=== PATIENT | female | born 1945 | race Caucasian/White ===

== ENCOUNTER 2018-06-02 16:27 | Observation (INO) | payer MEDICARE, OTHER ==
[~2018-06-02 16:27] MED LIST: Iopamidol 370 76% 100 ML VIAL ONE
[2018-06-02] MEDS ORDERED: Nitroglycerin 4.9 GM Bottle ONE (17:17)
[2018-06-02] MEDS ORDERED: Nitroglycerin 0.4 MG TAB (25 Tab Bottle) ONE (17:17)
[2018-06-02 17:34] LABS: #Basophils 0.1 thou/uL (0.0-0.2); #Eosinphils 0.2 thou/uL (0.0-0.7); #Lymphocytes 2.2 thou/uL (1.20-3.40); #Monocytes 0.7 thou/uL (0.11-0.59); %Basophils 1.1 % (0.0-1.0); %Eosinophils 2.1 % (0.0-10.0); %Monocytes 7.3 % (0.0-10.0); %Neutrophils 65.5 % (42.0-75.0); Hemoglobin 14.4 g/dL (12.0-16.0); Mean Corpuscular HGB CONC 32.7 g/dL (32.0-36.0); Mean Corpuscular Hemoglobin 28.5 pg (27.0-31.0); Mean Corpuscular Volume 87.3 fL (78.0-98.0); Mean Platelet Volume 9.4 fL (7.4-10.4); Platelet Count 183 thou/uL (130-400); Red Blood Cell (RBC) Count 5.04 mill/uL (4.20-5.40); White Blood Cell (WBC) Count 9.2 thou/uL (4.8-10.8)
[2018-06-02 17:49] LABS: ALT (SGPT) 17 U/L (8-55); AST (SGOT) 17 U/L (5-34); Albumin 4.5 g/dL (3.4-4.8); Alkaline Phosphatase 81 U/L (40-150); Anion Gap 13 mmol/L (10-20); BUN (Urea Nitrogen) 14 mg/dL (9.8-20.1); Bilirubin, Total 0.5 mg/dL (0.2-1.2); CK (CPK) 111 U/L (29-168); Calc. Creatinine Clearance 0 mL/min (70-130); Calcium 10.1 mg/dL (7.8-10.44); Carbon Dioxide 27 mmol/L (23-31); Chloride 106 mmol/L (98-107); Estimated GFR-MDRD 72; Globulin 3.1 g/dL (2.4-3.5); Glucose 102 mg/dL (80-115); Lipase 10 U/L (8-78); Potassium 4.2 mmol/L (3.5-5.1); Protein, Total 7.6 g/dL (6.0-8.3); Sodium 142 mmol/L (136-145)
[2018-06-02 17:50] LABS: CKMB 1.8 ng/mL (0-6.6); Troponin I Less than 0.010 ng/mL (< 0.028)
[2018-06-02] MEDS ORDERED: Morphine 4 MG/ML VIAL ONE (17:58)
--- NOTE | 2018-06-02 18:31 | RAD ---
CHEST ONE VIEW: HISTORY: Chest pain. FINDINGS: The cardiac silhouette is magnified by projection. The pulmonary vasculature is unremarkable. The m ediastinum is midline with aortic calcification. No lobar consolidation or evidence of pneumothorax. IMPRESSION: Atherosclerosis. No active cardiopulmonary abnormalities are demonstrated. POS: [facility]
--- NOTE | 2018-06-02 19:28 | CT ---
CT ARTERIOGRAM CHEST WITH IV CONTRAST AND 3D MIP IMAGING: CT ARTERIOGRAM ABDOMEN WITH IV CONTRAST AND 3D MIP IMAGING: CT ARTERIOGRAM PELVIS WITH IV CONTRAST AND 3D MIP IMAGING: HISTORY: Chest pain. Abdomen pain. Radiation to back. FINDINGS: Good contrast opacification of the pulmonary arteries and thoracic aorta with normal branching of the great vessels. Mild arterial calcification. No aneurysm or leak. No evidence of dissection. The visceral arteries of the abdomen are patent. Hyperdense stones in the dependent portion of the gallb ladder lumen. Postoperative changes of the anterior abdominal wall. The urinary bladder is unremark able. Diverticula arise from the colon without adjacent inflammation. Postoperative changes of the lumbar spine. IMPRESSION: 1. No evidence of aortic dissection or aneurysm. 2. Mild atherosclerosis. 3. Cholelithiasis. 4. Diverticulosis. No evidence of diverticulitis. POS: [facility]
[2018-06-02 20:46] VITALS: BMI 32.9
[2018-06-02] MEDS ORDERED: Zolpidem Tartrate 5 MG TAB PO PRN ×2 (21:27→22:57)
[2018-06-02] MEDS ORDERED: Ondansetron HCl/PF 4 MG/2 ML Vial IVP PRN (22:55)
[2018-06-02] MEDS ORDERED: Nitroglycerin 0.4 MG TAB (25 Tab Bottle) PO PRN (22:55)
[2018-06-02] MEDS ORDERED: HumaLOG 300 UNITS/3 ML VIAL SC PRN (22:57)
[2018-06-02] MEDS ORDERED: Dextrose 5% in Water 1,000 ML IV PRN (22:57)
[2018-06-02] MEDS ORDERED: Dextrose 50% Abboject 50 ML SYRINGE SLOW IVP PRN (22:57)
[2018-06-02 23:30] LABS: Troponin I Less than 0.010 ng/mL (< 0.028)
--- NOTE | 2018-06-03 00:20 | HP ---
PRIMARY CARE PHYSICIAN: Dr. Ruddy Mcarthur. CODE STATUS: FULL CODE. TIME OF EVALUATION: 9:40 p.m. CHIEF COMPLAINT: Left shoulder pain radiating to the left arm. HISTORY OF PRESENT ILLNESS: A 72-year-old female patient with past medical history of diabetes type 2, came to the hospital after having chest pain that was mostly on the left shoulder radiating to the left arm. The pain has been going on for the past 4 days with no clear triggers, no alleviating fac tors. The patient reported the pain occasionally severe, 8/10, has a strong family history of diabet es and heart problems. REVIEW OF SYSTEMS: Constitutional: No fever or chills or generalized weakness. Respiratory: No co ugh, sputum production, shortness of breath. Cardiovascular: The patient has chest pain radiating t o the left shoulder and left arm as described in HPI. Gastrointestinal: No nausea, no vomiting, darlene rrhea or abdominal pain. [employer]: No dizziness, headache or feeling lightheaded. Genitourinary: No bu rning with urination. Extremities: No leg swelling. All other systems were reviewed and negative e xcept for the findings mentioned above. PAST MEDICAL HISTORY: Positive for diabetes. PAST SURGICAL HISTORY: Carpal tunnel surgery, multiple back surgeries with pins and rods. PSYCHIATRIC HISTORY: No previous psychiatric history. SOCIAL HISTORY: No alcohol, no drugs. No smoking history. DRUG ALLERGIES: No known drug allergies. REPORTED MEDICATIONS: Metformin, glyburide, atorvastatin and zolpidem. PHYSICAL EXAMINATION: VITAL SIGNS: On presentation, blood pressure 175/84 with heart rate 58, respiratory rate was 18, tem perature 98.4, pain is 8/10, oxygen saturation 100% on room air. GENERAL APPEARANCE: Patient is alert, oriented, in no acute distress. HEENT: Eyes, normal conjunctivae. Moist oral mucosa. Anicteric. NECK: No JVD. RESPIRATORY: Bilateral air entry. No rales or wheezes, symmetric expansion. CARDIOVASCULAR: Normal rate, regular rhythm. No murmurs or gallop. No edema. ABDOMEN: Soft, normal bowel sounds. MUSCULOSKELETAL: Baseline range of motion and strength. No tenderness. SKIN: Warm and intact. No pallor or rash. No redness. Peripheral pulses are present. Capillary r efill seems to be intact. NEUROLOGIC: No evidence of any new focal weakness. Baseline speech. Cranial nerves seem to be inta ct. PSYCHIATRIC: The patient is in a good mood. No anxiety. Oriented, optimal judgment. IMAGING: EKG was discussed with performing physician from ER. The patient has a sinus bradycardia a t rate of 48 with no specific acute ischemic event. Radiology was reviewed. The patient has chest x -ray that was negative. LABORATORY DATA: White count 9.2, hemoglobin 14.4, MCV 87.3, platelet count 183. Chemistry: Sodium 142, potassium 4.2, chloride 106, carbon dioxide 27, anion gap 13, BUN 14, creatinine 0.79, GFR 72, glucose 102, calcium 10.1, total bilirubin 0.5, AST 17, ALT 17. Troponin was negative x2. Beta natr iuretic peptide was 36.8. Serum total protein 7.6, albumin 4.5, albumin 3.1, albumin globulin ratio is 1.5 with lipase 10. ASSESSMENT AND PLAN: The patient will be placed in the hospital for the following medical problems, 1. Chest pain, rule out acute coronary syndrome. The patient has a strong family history in the mot her and father, coronary problems, we will do a stress test in the morning, we will monitor troponins overnight, monitor on tele. 2. Uncontrolled high blood pressure, reconcile home medications, we will adjust treatment as needed. The patient presented with a systolic blood pressure of 175/84. 3. Controlled diabetes, reconcile home meds, sliding scale for optimal control. 4. Deep venous thrombosis prophylaxis.
[2018-06-03] MEDS ORDERED: Ibuprofen 200 MG TAB PO SCH (03:45)
[2018-06-03 04:18] LABS: Anion Gap 12 mmol/L (10-20); BUN (Urea Nitrogen) 14 mg/dL (9.8-20.1); Calc. Creatinine Clearance 104 mL/min (70-130); Calcium 9.1 mg/dL (7.8-10.44); Carbon Dioxide 24 mmol/L (23-31); Chloride 108 mmol/L (98-107); Estimated GFR-MDRD 84; Glucose 87 mg/dL (80-115); Potassium 3.9 mmol/L (3.5-5.1); Sodium 140 mmol/L (136-145)
[2018-06-03 04:34] LABS: #Basophils 0.1 thou/uL (0.0-0.2); #Eosinphils 0.3 thou/uL (0.0-0.7); #Lymphocytes 2.6 thou/uL (1.20-3.40); #Monocytes 0.6 thou/uL (0.11-0.59); #Neutrophils 4.6 thou/uL (1.40-6.50); %Eosinophils 3.3 % (0.0-10.0); %Lymphocytes 31.5 % (21.0-51.0); %Monocytes 7.6 % (0.0-10.0); %Neutrophils 56.6 % (42.0-75.0); Hemoglobin 13.3 g/dL (12.0-16.0); Mean Corpuscular HGB CONC 33.1 g/dL (32.0-36.0); Mean Corpuscular Hemoglobin 30.1 pg (27.0-31.0); Mean Corpuscular Volume 90.9 fL (78.0-98.0); Mean Platelet Volume 8.1 fL (7.4-10.4); Platelet Count 199 thou/uL (130-400); Red Blood Cell (RBC) Count 4.41 mill/uL (4.20-5.40); White Blood Cell (WBC) Count 8.1 thou/uL (4.8-10.8)
[2018-06-03] MEDS: Acetaminophen 325 MG TAB PO PRN ×2 (08:17→11:54)
[2018-06-03] MEDS ORDERED: Enoxaparin Sodium 40 MG/0.4 ML SYRINGE SC SCH (09:00)
[2018-06-03] MEDS ORDERED: Aspirin 325 MG TAB PO SCH (09:00)
[2018-06-03 12:03] VITALS: BP 130/61; TEMP 98.4
[2018-06-03] MEDS ORDERED: Cyclobenzaprine 10 MG TAB PO SCH (13:45)
--- NOTE | 2018-06-03 16:07 | PDOC.EVN ---
Event Note - Event Note Event Note: case discussed with Sarah FERNANDEZ, agree with management and DC plans
[2018-06-03] MEDS ORDERED: Atorvastatin Calcium 20 MG TAB PO SCH (21:00)
--- NOTE | 2018-06-04 11:42 | DIS ---
DATE OF ADMISSION: 06/02/2018 DATE OF DISCHARGE: 06/03/2018 DISCHARGE DIAGNOSES: 1. Chest pain, noncardiac, improved. 2. Hypertension, resolved. 3. Diabetes mellitus, stable. CONSULTATIONS: None. PERTINENT LABORATORY DATA AND DIAGNOSTIC IMAGING: WBC 8.1, RBC 4.41, sodium 140, potassium 3.9. Tro ponin negative x2. Portable chest x-ray revealed atherosclerosis with no active cardiopulmonary abno rmalities demonstrated, CTA chest revealed no evidence of aortic dissection or aneurysm, mild atheros clerosis and cholelithiasis, along with diverticulosis with no evidence of diverticulitis at this simone e. HOSPITAL COURSE: This patient was admitted with complaints of chest pain that radiated to left shoul kinza and down the left arm. On admission, her blood pressure was found to be elevated at 175/84; schaffer kelechi, this improved throughout the hospital course with no antihypertensive medication. Serial tropon ins were obtained; however, were found to be within normal limits x2. She then underwent a treadmill stress test which revealed no signs of ischemia at this time. During hospital course, patient was s tarted on aspirin 325 mg daily, which she tolerated well with no signs of bleeding, her chest pain se emed to be of musculoskeletal like etiology since her pain resolved after one dose of cyclobenzaprine prior to discharge. She had no further complaints of chest pain nor radiating pain down left arm th ereafter. She was advised to continue aspirin 325 mg daily along with her home dose of atorvastatin and follow up with her primary care physician, Dr. Ruddy Mcarthur within 1-2 weeks. She was provided a prescription for cyclobenzaprine prior to discharge which she will continue as needed for any further pain. She was examined prior to discharge and she had verbalized her understanding for plan and dis charge on 06/03/2018. DISCHARGE MEDICATIONS: 1. Aspirin 325 mg daily. 2. Cyclobenzaprine 10 mg 3 times daily as needed for pain. 3. Atorvastatin 20 mg at bedtime. 4. Glyburide 2.5 mg daily. 5. Metformin 1000 mg twice daily with meals. FOLLOWUP: Patient is to follow up with her primary care physician, Dr. Ruddy Mcarthur in 1-2 weeks, she had verbalized that she has a follow up on 06/10/2018. CONDITION ON DISCHARGE: Stable. ACTIVITY: As tolerated. DIET: Healthy heart. CODE STATUS: FULL CODE. DISPOSITION: Home on 06/03/2018.
== END 2018-06-03 15:35 | disposition home or self-care (01) ==
LOC: SCSER 16:27 → 2SW 18:48
PROVIDERS: ADMIT Internal Medicine Infectious Disease; ATTEND Internal Medicine Infectious Disease
DX: R07.89 Other chest pain (principal); E11.9 Type 2 diabetes mellitus without complications; I10 Essential (primary) hypertension; Z79.84 Long term (current) use of oral hypoglycemic drugs; Z79.899 Other long term (current) drug therapy; Z98.890 Other specified postprocedural states
CPT/HCPCS: 71045; 71275; 80048; 80053; 82550; 82553; 82962 ×2; 83690; 83880; 84484 ×2; 85025 ×2; 93005; 93017; 96361; 96372; 96374; 96375; 99285; G0378 ×2; 36415; 36416; J1650; J2270; J2405

== ENCOUNTER 2018-06-18 16:09 | Outpatient (CLI) | payer MEDICARE, OTHER ==
[2018-06-18 17:07] LABS: #Basophils 0.1 thou/uL (0.0-0.2); #Eosinphils 0.2 thou/uL (0.0-0.7); #Monocytes 0.6 thou/uL (0.11-0.59); #Neutrophils 4.7 thou/uL (1.40-6.50); %Basophils 0.7 % (0.0-1.0); %Eosinophils 2.2 % (0.0-10.0); %Lymphocytes 26.8 % (21.0-51.0); %Monocytes 7.6 % (0.0-10.0); %Neutrophils 62.7 % (42.0-75.0); Hemoglobin 15.3 g/dL (12.0-16.0); Mean Corpuscular HGB CONC 32.6 g/dL (32.0-36.0); Mean Corpuscular Hemoglobin 29.4 pg (27.0-31.0); Mean Corpuscular Volume 90.2 fL (78.0-98.0); Mean Platelet Volume 8.5 fL (7.4-10.4); Platelet Count 234 thou/uL (130-400); RBC Distribution Width 11.8 % (11.5-14.5); Red Blood Cell (RBC) Count 5.21 mill/uL (4.20-5.40); White Blood Cell (WBC) Count 7.5 thou/uL (4.8-10.8)
[2018-06-18 17:37] LABS: ALT (SGPT) 13 U/L (8-55); AST (SGOT) 16 U/L (5-34); Albumin 4.5 g/dL (3.4-4.8); Alkaline Phosphatase 90 U/L (40-150); Anion Gap 14 mmol/L (10-20); BUN (Urea Nitrogen) 12 mg/dL (9.8-20.1); Bilirubin, Direct 0.2 mg/dL (0.1-0.3); Bilirubin, Total 0.4 mg/dL (0.2-1.2); Calc. Creatinine Clearance 0 mL/min (70-130); Calcium 9.9 mg/dL (7.8-10.44); Carbon Dioxide 26 mmol/L (23-31); Chloride 103 mmol/L (98-107); Estimated GFR-MDRD 72; Globulin 2.9 g/dL (2.4-3.5); Glucose 103 mg/dL (80-115); Potassium 4.1 mmol/L (3.5-5.1); Protein, Total 7.4 g/dL (6.0-8.3); Sodium 139 mmol/L (136-145)
== END 2018-06-18 16:10 | disposition home or self-care (01) ==
LOC: LABBT 16:09
PROVIDERS: ATTEND Surgery
DX: Z01.818 Encounter for other preprocedural examination (principal); K80.20 Calculus of gallbladder without cholecystitis without obstruction
CPT/HCPCS: 80053; 80076; 85025; 93005; 93010

== ENCOUNTER 2018-06-23 06:04 | Day surgery (SDC) | payer MEDICARE, OTHER ==
[2018-06-20 12:50] VITALS: BMI 32.5
[2018-06-23] MEDS ORDERED: Fentanyl 100 MCG/2 ML VIAL ONE (06:18)
[2018-06-23] MEDS ORDERED: Lidocaine 2% Jelly 5 ML TUBE ONE (06:18)
[2018-06-23] MEDS ORDERED: Sodium Chloride 0.9% 100 ML ONE (06:45)
[2018-06-23] MEDS ORDERED: cefOXitin 2 GM VIAL ONE (06:45)
[2018-06-23] MEDS ORDERED: Bupivacaine/Epinephrine 0.25% 30 ML VIAL ONE (06:56)
--- NOTE | 2018-06-23 08:56 | OP ---
PREOPERATIVE DIAGNOSIS: Symptomatic cholelithiasis. SURGEON: Carlos Acosta M.D. PROCEDURE PERFORMED: Laparoscopic cholecystectomy. INDICATIONS: A 72-year-old female who has been having episodic right upper quadrant pain radiating t o the back. Ultrasound showed cholelithiasis. FINDINGS: She had a previous abdominoplasty and there was a milky fluid collection subumbilical that we encountered during entry. Gram stain was negative. She had a small caliber cystic duct. PROCEDURE IN DETAIL: After informed consent was obtained, the patient was taken to the operating tiara m and given general endotracheal anesthesia. She was placed in the supine position. The abdomen was prepped and draped in usual fashion. She had multiple abdominal wall scars from abdominoplasty, so started of with a 5 mm incision, right subcostal after local anesthesia infiltrated subcutaneously an d deep. A Veress needle inserted. Drop test performed. Pneumoperitoneum was created to a volume of 2 liters of carbon dioxide. Utilizing a bladeless 5 mm trocar and 0 degree laparoscope, direct visu al entry on the abdominal cavity was performed. Pneumoperitoneum was created to a pressure of 15 mmH g. Zero degree laparoscope was inserted and under direct vision, inspected the abdominal wall. Ther e were no adhesions intraabdominally, so a subumbilical incision was performed through an old scar. Upon entry into this cavity, there was a release of this milky fluid, probably about 15 mL. This was sent for culture and Gram stain. The bladeless 10 mm trocar inserted and the patient was placed in reverse Trendelenburg, right side up. Two other 5-mm ports were placed right subcostal. Gallbladder grasped and advanced superiorly. Adhesions were lysed using sharp dissection. The peritoneum opene d and the cystic duct artery and critical view was exposed. The artery and duct triply ligated with Hemoclips and divided. The gallbladder was removed from its fossa utilizing electrocautery, was plac ed in an Endosac and removed from the abdomen through the umbilical port. Hemostasis was assured. T he fascia was closed at the subumbilical incision with a 0 Vicryl suture and the GraNee needle and fi [id number]. Then trocars were removed. The skin closed with interrupted 4-0 Rapide. Dermabond a pplied. The patient tolerated the procedure well and was transferred to recovery in good condition. Sponge and needle count verified correct x2.
[2018-06-23] MEDS ORDERED: Glycopyrrolate 0.2 MG/ML 5 ML SYRINGE ONE (09:20)
[2018-06-23] MEDS ORDERED: Dexamethasone 20 MG/5 ML VIAL ONE (09:20)
[2018-06-23] MEDS ORDERED: Ondansetron PF 4 MG/2 ML Vial ONE (09:20)
[2018-06-23] MEDS ORDERED: Lidocaine 1% PF 5 ML VIAL ONE (09:20)
[2018-06-23] MEDS ORDERED: ePHEDrine/0.9% NaCl/PF SYRINGE 50 mg/10 ml ONE (09:20)
[2018-06-23] MEDS ORDERED: PROPOFOL 200 MG/20 ML VIAL ONE (09:20)
[2018-06-23] MEDS ORDERED: HYDROcodone/Acetaminophen 5/325 mg Tablet ONE (10:51)
== END 2018-06-23 17:23 | disposition home or self-care (01) ==
LOC: SDC 06:04
PROVIDERS: ATTEND Surgery
PROC: 0FT44ZZ Resection of Gallbladder, Percutaneous Endoscopic Approach (ICD-10-PCS; principal; 2018-06-23)
DX: K80.10 Calculus of gallbladder with chronic cholecystitis without obstruction (principal); E11.9 Type 2 diabetes mellitus without complications; M19.90 Unspecified osteoarthritis, unspecified site; Z79.84 Long term (current) use of oral hypoglycemic drugs; Z79.899 Other long term (current) drug therapy; Z91.048 Other nonmedicinal substance allergy status
CPT/HCPCS: 87070; 87205; 88304; J0694; J3010; J7050